=== PATIENT | female | born 1975 | race Caucasian/White ===

== ENCOUNTER 2023-04-25 10:48 | Day surgery (SDC) | payer BC ==
--- NOTE | 2023-04-25 08:50 | HP ---
DATE OF SURGERY: 04/25/2023 HISTORY OF PRESENT ILLNESS: The patient is a 47-year-old with some constipation, last colonoscopy more than ten years ago. Occasional blood when wiping. No other recent change in bowel movements. Family history negative for colon cancer. PAST MEDICAL HISTORY: Chronic constipation. Fibromyalgia. PAST SURGICAL HISTORY: Cholecystectomy. Colonoscopy. Tubal. MEDICATIONS: Fleet Glycerin rectal suppositories. Xyzal. Vitamin B complex. ALLERGIES: REGLAN. FAMILY HISTORY: Negative for colon cancer. SOCIAL HISTORY: Denies smoking, occasional alcohol use. REVIEW OF SYSTEMS: Fourteen systems reviewed. No chest pain or palpitations. Other systems negative or noncontributory as above and per preadmission questionnaire. PHYSICAL EXAMINATION: Height 5'5". BMI 26.6. GENERAL: No acute distress. HEENT: Sclerae nonicteric. EOMI. Oral mucous membranes moist. NECK: No JVD. CHEST: Equal excursion, nonlabored breathing. CVS: Regular rate and rhythm. ABDOMEN: Soft. No peritoneal signs. EXTREMITIES: No significant edema. NEURO: Alert, oriented, moving extremities symmetrically. No gross motor deficits noted. RECTAL: Deferred timed to endoscopy exam. PSYCH: Appropriate mood and affect. SKIN: Dry. IMPRESSION: The patient's last colonoscopy was more than ten years ago. No recent change in bowel habits. She does have chronic constipation. She is in need of follow up screening colonoscopy. General risk of bleeding or infection, risk of bowel injury or perforation, risk of missed or nondiagnosis or incomplete exam, possibly requiring barium enema, other studies or procedures, general risk of anesthesia or sedation, risk of bowel prep or sedation but not limited to, consent obtained. Will proceed with follow up screening colonoscopy as an outpatient.
[2023-04-25] MEDS ORDERED: Lactated Ringers 1,000 ML IV SCH (11:00)
[2023-04-25 11:20] LABS: HCG URINE TEST NEGATIVE (NEGATIVE)
[2023-04-25] MEDS ORDERED: Xylocaine-Mpf 2% 5 Ml Vial ONE (12:23)
[2023-04-25] MEDS ORDERED: DIPRIVAN 200 MG/20 ML IV ONE ×2 (12:23→12:38)
[2023-04-25] MEDS ORDERED: Versed 2 MG/2 ML Injection ONE (12:23)
[2023-04-25 13:20] VITALS: RESP 18
[2023-04-25 13:42] VITALS: TEMP 97.3; O2SAT 100
[2023-04-25 15:20] VITALS: BP 110/70; PULSE 78
--- NOTE | 2023-04-25 15:23 | OP ---
SURGERY DATE/TIME: 04/25/2023 1228 PREOPERATIVE DIAGNOSES: 1) Last colonoscopy ten years or so ago, need for follow up screening colonoscopy. 2) History of constipation but no recent change in bowel movements. POSTOPERATIVE DIAGNOSES: 1) Small polyps versus hyperplastic lesion sigmoid and rectum. 2) Good bowel prep. 3) Small internal hemorrhoids. 4) ASA Class II. 5) Withdrawal time approximately 9 minutes. PROCEDURES: 1) Colonoscopy to cecum. 2) Hot biopsy polypectomy small early polyp versus hyperplastic lesion x2 in the sigmoid colon and x3 in the rectum. SURGEON: Dr. Amor Kelly. ANESTHESIA: MAC. ESTIMATED BLOOD LOSS: Minimal. INDICATIONS: As noted above. Risks and benefits explained in detail but not limited to and consent obtained. DESCRIPTION OF PROCEDURE AND FINDINGS: The patient is taken to the endoscopy room. MAC anesthesia induced. After official time out and no disagreement with planned procedure, digital rectal exam did not reveal any rectal masses but she did have some small internal hemorrhoids. Video colonoscope inserted and passed up the tortuous sigmoid, descending, transverse and ascending colon around to the cecum. Appendiceal orifice and ileocecal valve well visualized and photo documented. Prep overall was good with a little bit of liquidy stool just slightly limiting the exam otherwise overall good prep, suctioned and irrigated as clear as possible. The scope is slowly and carefully withdrawn over the next 9 minutes. As she had some constipation a couple random cold biopsies taken to evaluate for microscopic inflammation of the colon but otherwise the mucosa had no macroscopic inflammation. The scope is slowly and carefully withdrawn back to sigmoid colon. Two small early polyps versus hyperplastic lesion removed with hot biopsy forceps. Another three in the rectum removed with hot biopsy forceps, early polyps versus hyperplastic lesion. The scope is withdrawn. The patient tolerated the procedure well. There were no immediate complications. There was no family to discuss the findings with out in the waiting room.
== END 2023-04-25 13:50 | disposition home or self-care (01) ==
LOC: SDC 10:48
PROVIDERS: ATTEND Surgery
DX: Z12.11 Encounter for screening for malignant neoplasm of colon (principal); K59.00 Constipation, unspecified; K63.5 Polyp of colon; K64.8 Other hemorrhoids
CPT/HCPCS: 81025; J2250; J2704